=== PATIENT | male | born 1980 | race Two or more races ===

== ENCOUNTER 2021-10-29 08:23 | Emergency (ER) | payer MEDICARE, OTHER ==
[~2021-10-29] VITALS: Ht 170.2 cm; Wt 104.3 kg
[2021-10-29 08:58] LABS: BASOPHILS # (AUTO) 0.1 K/uL (0.0-0.2); BASOPHILS % (AUTO) 0.8 % (0.0-2.0); EOSINOPHILS % (AUTO) 2.2 % (0.0-6.0); HEMATOCRIT 26 % (39-51); HEMOGLOBIN 8.7 g/dL (13.5-17.5); LYMPHOCYTES # (AUTO) 1.4 K/uL (0.8-4.8); LYMPHOCYTES % (AUTO) 19.9 % (20.0-44.0); MEAN CORPUSCULAR HGB CONC 34 g/dl (31.0-36.0); MEAN CORPUSCULAR VOLUME 85 fL (80-96); MONOCYTES # (AUTO) 0.6 K/uL (0.1-1.30); MONOCYTES % (AUTO) 8.6 % (2.0-12.0); NEUTROPHILS # (AUTO) 4.9 K/uL (1.8-8.9); NEUTROPHILS % (AUTO) 68.5 % (43.0-81.0); PLATELET COUNT (AUTO) 336 K/uL (150-450); RED BLOOD CELL COUNT(AUTO) 3.02 MIL/uL (4.5-6.0); WHITE BLOOD COUNT (AUTO) 7.1 K/uL (4.3-11.0)
[2021-10-29] MEDS ORDERED: METO-357 PO (09:10)
[2021-10-29] MEDS ORDERED: FOLI0.4T6 PO (09:10)
[2021-10-29] MEDS ORDERED: INSU100V7 SQ (09:10)
[2021-10-29] MEDS ORDERED: FERR325T24 PO (09:10)
[2021-10-29] MEDS ORDERED: GLIP1TAB6 PO (09:10)
[2021-10-29] MEDS ORDERED: INSU100I4 SQ (09:10)
[2021-10-29] MEDS ORDERED: VALS1TAB6 PO (09:10)
[2021-10-29] MEDS ORDERED: CLOZ100T32 PO (09:13)
[2021-10-29 09:19] LABS: ALANINE AMINOTRANSFERASE 22 U/L (12-78); ALBUMIN 2.9 g/dL (3.4-5.0); ALKALINE PHOSPHATASE 151 U/L (46-116); ASPARTATE AMINOTRANSFERASE 15 U/L (15-37); BILIRUBIN,DIRECT 0.1 mg/dL (0.0-0.2); BILIRUBIN,TOTAL 0.2 mg/dL (0.2-1.0); CALCIUM, SERUM 8.3 mg/dL (8.5-10.1); CARBON DIOXIDE 22 mmol/L (21-32); CHLORIDE 94 mmol/L (98-107); CREATININE 1.6 mg/dL (0.6-1.3); GLUCOSE 291 mg/dL (74-106); POTASSIUM 4.4 mmol/L (3.5-5.1); SODIUM SERUM 124 mmol/L (136-145); UREA NITROGEN, BLOOD 21 mg/dL (7-18)
[2021-10-29 09:21] LABS: ACETAMINOPHEN < 0 ug/ml (10-30); ALCOHOL, BLOOD < 3 mg/dL (0-0)
[2021-10-29 09:49] LABS: BILIRUBIN,URINE NEGATIVE (NEGATIVE); COLOR,URINE YELLOW (YELLOW); LEUKOCYTE ESTERASE ,URINE NEGATIVE (NEGATIVE); NITRITE, URINE NEGATIVE (NEGATIVE); PROTEIN,URINE 30 mg/dl (NEGATIVE); UGLUCOSE 250 MG/DL mg/dL (NEGATIVE); UROBILINOGEN,URINE 0.2 EU/dL (0.2)
[2021-10-29 10:12] LABS: BACTERIA,URINE Rare /HPF (None Seen); RBC,URINE 0-2 /HPF (0-2); SQUAMOUS EPITHELIAL CELL,UR Rare /HPF (None Seen); WBC,URINE 0-2 /HPF (0-3)
[2021-10-29] MEDS ORDERED: OLANZAPINE 10 MG VIAL IM ONE ×2 (11:53→12:00)
[2021-10-29] MEDS ORDERED: LORAZEPAM INJ 2 MG/ML VIAL ONE (13:43)
[2021-10-29] MEDS ORDERED: LORAZEPAM INJ 2 MG/ML VIAL IM ONE (14:00)
[2021-10-29] MEDS ORDERED: diphenhydrAMINE HCL 50 MG/ML VIAL ONE (14:16)
[2021-10-29] MEDS ORDERED: HALOPERIDOL LACTATE INJ 5 MG/ML VIAL ONE (14:16)
[2021-10-29] MEDS ORDERED: HALOPERIDOL LACTATE INJ 5 MG/ML VIAL IM ONE (14:30)
[2021-10-29] MEDS ORDERED: diphenhydrAMINE HCL 50 MG/ML VIAL IM ONE (14:30)
[2021-10-29 20:54] VITALS: BP 160/89
== END 2021-10-29 20:54 | disposition home or self-care (01) ==
LOC: ER 08:40
DX: F29 Unspecified psychosis not due to a substance or known physiological condition (principal); I10 Essential (primary) hypertension; Z20.822 Contact with and (suspected) exposure to COVID-19; Z79.899 Other long term (current) drug therapy
CPT/HCPCS: 36415; 80048; 80076; 80143; 80307; 80320; 81001; 85025; 87426; 96372 ×2; 99285; J1200; J1630; J2060; J3490; C9803; G0480

== ENCOUNTER 2022-07-26 10:24 | Outpatient (CLI) | payer MEDICARE, OTHER ==
[~2022-07-26 10:24] MED LIST: ACET325T53 PO; CLOT15CR5 TP; CLOZ100T32 PO; FERR325T24 PO; FERR325T28 GT; FOLI0.4T6 PO; Folic Acid GT; INSU100I4 SQ; INSU100V7 SQ; METO-357 PO; PANT40SU2 GT; PIPE3.379 IV; Prosource GT; SODI473S8 TOP; VALS1TAB6 PO
[2022-07-26] MEDS ORDERED: COLLAGENASE 5 GM TUBE UD TP ONE (10:36)
== END 2022-07-26 23:59 | disposition home health service (06) ==
LOC: WOU 10:24
PROVIDERS: ATTEND Surgery
DX: T81.31XA Disruption of external operation (surgical) wound, not elsewhere classified, initial encounter (principal); I10 Essential (primary) hypertension; E11.9 Type 2 diabetes mellitus without complications; E66.01 Morbid (severe) obesity due to excess calories; Z68.34 Body mass index [BMI] 34.0-34.9, adult; Z79.4 Long term (current) use of insulin; Z79.84 Long term (current) use of oral hypoglycemic drugs
CPT/HCPCS: 11043; A6407

== ENCOUNTER 2022-08-02 10:00 | Outpatient (CLI) | payer MEDICARE, OTHER | END 2022-08-02 23:59 | disposition home health service (06) | LOC: WOU 10:00 | PROVIDERS: ATTEND Surgery | DX: T81.31XA Disruption of external operation (surgical) wound, not elsewhere classified, initial encounter (principal); E11.9 Type 2 diabetes mellitus without complications; Z79.4 Long term (current) use of insulin; Z79.84 Long term (current) use of oral hypoglycemic drugs; E66.01 Morbid (severe) obesity due to excess calories; Z68.34 Body mass index [BMI] 34.0-34.9, adult; I10 Essential (primary) hypertension | CPT/HCPCS: 11043 ==

== ENCOUNTER 2022-08-23 10:48 | Outpatient (CLI) | payer MEDICARE, OTHER | END 2022-08-23 23:59 | disposition home health service (06) | LOC: WOU 10:48 | PROVIDERS: ATTEND Surgery | DX: T81.31XA Disruption of external operation (surgical) wound, not elsewhere classified, initial encounter (principal); E11.9 Type 2 diabetes mellitus without complications; Z79.4 Long term (current) use of insulin; Z79.84 Long term (current) use of oral hypoglycemic drugs; I10 Essential (primary) hypertension; E66.01 Morbid (severe) obesity due to excess calories; Z68.34 Body mass index [BMI] 34.0-34.9, adult | CPT/HCPCS: 11043 ==

== ENCOUNTER 2022-09-13 10:19 | Outpatient (CLI) | payer MEDICARE, OTHER | END 2022-09-13 23:59 | disposition home health service (06) | LOC: WOU 10:19 | PROVIDERS: ATTEND Podiatrist Foot & Ankle Surgery | DX: T81.31XA Disruption of external operation (surgical) wound, not elsewhere classified, initial encounter (principal); I10 Essential (primary) hypertension; E11.9 Type 2 diabetes mellitus without complications; Z79.4 Long term (current) use of insulin; Z79.84 Long term (current) use of oral hypoglycemic drugs; E66.01 Morbid (severe) obesity due to excess calories; Z68.34 Body mass index [BMI] 34.0-34.9, adult | CPT/HCPCS: 11042 ==

== ENCOUNTER 2022-10-18 09:43 | Outpatient (CLI) | payer MEDICARE, OTHER | END 2022-10-18 23:59 | disposition home or self-care (01) | LOC: WOU 09:43 | PROVIDERS: ATTEND Surgery | DX: T81.89XD Other complications of procedures, not elsewhere classified, subsequent encounter (principal); I10 Essential (primary) hypertension; E11.9 Type 2 diabetes mellitus without complications; E66.01 Morbid (severe) obesity due to excess calories; Z68.34 Body mass index [BMI] 34.0-34.9, adult | CPT/HCPCS: G0463 ==

== ENCOUNTER 2023-07-07 01:54 | Emergency (ER) | payer MEDICARE, OTHER ==
[~2023-07-07] VITALS: Ht 175.3 cm; Wt 113.4 kg
[2023-07-07 02:45] VITALS: BP 140/102; TEMP 98.4
[2023-07-07] MEDS ORDERED: ALBU8.5H8 INH (02:59)
[2023-07-07 03:02] VITALS: O2SAT 99
== END 2023-07-07 03:03 | disposition home or self-care (01) ==
LOC: ER 01:59
DX: R05.9 Cough, unspecified (principal); I10 Essential (primary) hypertension; E11.9 Type 2 diabetes mellitus without complications; F20.9 Schizophrenia, unspecified; Z79.4 Long term (current) use of insulin; Z79.899 Other long term (current) drug therapy